=== PATIENT | male | born 1990 | race Caucasian/White ===

== ENCOUNTER 2016-12-08 15:21 | Emergency (ER) | payer BC, MEDICAID, OTHER ==
[~2016-12-08] VITALS: Ht 172.7 cm; Wt 74.8 kg
[2016-12-08] MEDS ORDERED: DERMABOND TOPICAL SKIN ADHESIVE TOP ONE (16:30)
--- NOTE | 2016-12-08 16:38 | REP ---
Left index finger series: Four views: History: Left index finger laceration. Findings: Four views of the left index finger show soft tissue swelling dorsally at the PIP joint. No fracture, subluxation or opaque foreign body is seen. Impression: No acute bony abnormality. Signed by Alexandru Higgins MD 12/08/2016 05:06 P
[2016-12-08 16:46] VITALS: BP 137/90
== END 2016-12-08 16:55 | disposition home or self-care (01) ==
LOC: M ED 16:12
DX: S61.211A Laceration without foreign body of left index finger without damage to nail, initial encounter (principal); X58.XXXA Exposure to other specified factors, initial encounter; Y92.9 Unspecified place or not applicable; Y93.9 Activity, unspecified; Y99.9 Unspecified external cause status

== ENCOUNTER 2016-12-09 08:53 | Emergency (ER) | payer OTHER ==
[2016-12-09] MEDS ORDERED: DERMABOND TOPICAL SKIN ADHESIVE TOP ONE (10:15)
[2016-12-09 10:16] VITALS: BP 138/80
== END 2016-12-09 10:29 | disposition home or self-care (01) ==
LOC: M ED 09:36
DX: Z51.89 Encounter for other specified aftercare (principal)

== ENCOUNTER → 2019-01-09 | Outpatient (REF) | payer OTHER | LOC: M LAB REF 10:14 | PROVIDERS: ATTEND Physician Assistant Medical | DX: J02.9 Acute pharyngitis, unspecified (principal) ==

== ENCOUNTER → 2019-08-21 | Outpatient (REF) | payer OTHER | LOC: M LAB REF 12:31 | PROVIDERS: ATTEND Physician Assistant Medical | DX: J02.9 Acute pharyngitis, unspecified (principal) ==

== ENCOUNTER → 2020-05-28 | Outpatient (CLI) | payer BC, OTHER ==
[~2020-05-28] MED LIST: METHACHOLINE KIT (J7674) INH ONE
--- NOTE | 2020-05-28 14:44 | PFTRPT ---
Visit Date: 05/28/2020 Referring Doctor: Milagro Pepe DO Height: 68.00 Inches Weight: 165.00 Lbs BSA: 1.88 Diagnosis: R05 QUALITY: Study of excellent technical quality. PROCEDURE: Under protocol, methacholine was administered. At a dose of 2.5 mg or 13.875 CDUs, a 20% decline in the FEV1 was noted. PC of 2.31 is significant. Flow rates did return to baseline post-bronchodilator administration. IMPRESSION: Positive methacholine challenge study. MTDD
--- NOTE | 2020-06-03 11:30 | METHCHAL ---
METHACHOLINE CHALLENGE STUDY DATE: 05/28/2020 ORDERED BY: Jaciel Dsouza QUALITY: Study of excellent technical quality. PROCEDURE: Under protocol, methacholine was administered. At a dose of 2.5 mg or 13.875 CDUs, a 20% decline in the FEV1 was noted. PC of 2.31 is significant. Flow rates did return to baseline post-bronchodilator administration. IMPRESSION: Positive methacholine challenge study. MTDD
== END ==
LOC: M CARPUL 05-26 13:01
PROVIDERS: ATTEND Internal Medicine
DX: R05 Cough (principal)

== ENCOUNTER → 2020-07-12 | Outpatient (CLI) | payer BC, OTHER | LOC: M LABSMTC 10:12 | PROVIDERS: ATTEND Family Medicine | DX: Z20.828 Contact with and (suspected) exposure to other viral communicable diseases (principal) ==

== ENCOUNTER → 2020-10-13 | Outpatient (CLI) | payer BC, OTHER ==
[~2020-10-13] MED LIST changes: -METHACHOLINE KIT (J7674) INH ONE; +PROT20TA11 PO; +QVAR80AE8 INH
== END ==
LOC: M LABSMTC 10:04
PROVIDERS: ATTEND Anesthesiology
DX: Z01.812 Encounter for preprocedural laboratory examination (principal); Z20.822 Contact with and (suspected) exposure to COVID-19

== ENCOUNTER 2020-10-16 08:00 | Day surgery (SDC) | payer BC, OTHER ==
[~2020-10-16] VITALS: Ht 172.7 cm; Wt 76.1 kg
[~2020-10-16 08:00] MED LIST changes: +LIDOCAINE 2% 100MG/5ML SDV (FOR ANES.) As Ordered ONE; +NS 1,000 ML IV ONE; +fentaNYL 100 MCG/2 ML INJECTION (J3010) As Ordered ONE; +propofoL 200 MG/20 ML VIAL As Ordered ONE
--- OUTSIDE RECORDS SUMMARY | 2020-10-16 08:05 | CCD ---
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 Name Role Phone Afshin, Milagro DO Unavailable Unavailable Afshin, Milagro DO Unavailable Unavailable Afshin, Milagro DO Unavailable Unavailable Afshin, Milagro DO Unavailable Unavailable Afshin, Milagro DO Unavailable Unavailable Afshin, Milagro DO Unavailable Unavailable Afshin, Milagro DO Unavailable Unavailable Afshin, Milagro DO Unavailable Unavailable Afshin, Milagro DO Unavailable Unavailable Afshin, Milagro DO Unavailable Unavailable Afshin, Milagro DO Unavailable Unavailable Afshin, Milagro DO Unavailable Unavailable Afshin, Milagro DO Unavailable Unavailable Afshin, Milagro DO Unavailable Unavailable Afshin, Milagro DO Unavailable Unavailable Afshin, Milagro DO Unavailable Unavailable Afshin, Milagro DO Unavailable Unavailable Afshin, Milagro DO Unavailable Unavailable Afshin, Milagro DO Unavailable Unavailable Afshin, Milagro DO Unavailable Unavailable Afshin, Milagro DO Unavailable Unavailable Afshin, Milagro DO Unavailable Unavailable Afshin, Milagro DO Unavailable Unavailable Afshin, Milagro DO Unavailable Unavailable Afshin, Milagro DO Unavailable Unavailable Afshin, Milagro DO Unavailable Unavailable Afshin, Milagro DO Unavailable Unavailable Afshin, Milagro DO Unavailable Unavailable Afshin, Milagro DO Unavailable Unavailable Afshin, Milagro DO Unavailable Unavailable Afshin, Milagro DO Unavailable Unavailable Afshin, Milagro DO Unavailable Unavailable Afshin, Milagro DO Unavailable Unavailable Afshin, Milagro DO Unavailable Unavailable Afshin, Milagro DO Unavailable Unavailable Afshin, Milagro DO Unavailable Unavailable Afshin, Milagro DO Unavailable Unavailable Afshin, Milagro DO Unavailable Unavailable Afshin, Milagro DO Unavailable Unavailable Afshin, Milagro DO Unavailable Unavailable Afshin, Milagro DO Unavailable Unavailable Afshin, Milagro DO Unavailable Unavailable Afshin, Milagro DO Unavailable Unavailable Afshin, Milagro DO Unavailable Unavailable Afshin, Milagro DO Unavailable Unavailable Afshin, Milagro DO Unavailable Unavailable Afshin, Milagro DO Unavailable Unavailable Afshin, Milagro DO Unavailable Unavailable Afshin, Milagro DO Unavailable Unavailable Afshin, Milagro DO Unavailable Unavailable Afshin, Milagro DO Unavailable Unavailable Afshin, Milagro DO Unavailable Unavailable Afshin, Milagro DO Unavailable Unavailable Afshin, Milagro DO Unavailable Unavailable Afshin, Milagro DO Unavailable Unavailable Afshin, Milagro DO Unavailable Unavailable Afshin, Milagro DO Unavailable Unavailable Afshin, Milagro DO Unavailable Unavailable Afshin, Milagro DO Unavailable Unavailable Afshin, Milagro DO Unavailable Unavailable Afshin, Milagro DO Unavailable Unavailable Afshin, Milagro DO Unavailable Unavailable Afshin, Milagro DO Unavailable Unavailable Afshin, Milagro DO Unavailable Unavailable Afshin, Milagro DO Unavailable Unavailable Afshin, Milagro DO Unavailable Unavailable Afshin, Milagro DO Unavailable Unavailable Afshin, Milagro DO Unavailable Unavailable Afshin, Milagro DO Unavailable Unavailable Afshin, Milagro DO Unavailable Unavailable Afshin, Milagro DO Unavailable Unavailable Afshin, Milagro DO Unavailable Unavailable LETTIERE, A DION PA Unavailable Unavailable LETTIERE, A DION PA Unavailable Unavailable LETTIERE, A DION PA Unavailable Unavailable LETTIERE, A DION PA Unavailable Unavailable LETTIERE, A DION PA Unavailable Unavailable LETTIERE, A DION PA Unavailable Unavailable LETTIERE, A DION PA Unavailable Unavailable LETTIERE, A DION PA Unavailable Unavailable LETTIERE, A DION PA Unavailable Unavailable LETTIERE, A DION PA Unavailable Unavailable LETTIERE, A DION PA Unavailable Unavailable LETTIERE, A DION PA Unavailable Unavailable LETTIERE, A DION PA Unavailable Unavailable LETTIERE, A DION PA Unavailable Unavailable LETTIERE, A DION PA Unavailable Unavailable LETTIERE, A DION PA Unavailable Unavailable LETTIERE, A DION PA Unavailable Unavailable LETTIERE, A DOIN PA Unavailable Unavailable LETTIERE, A DION PA Unavailable Unavailable LETTIERE, A DION PA Unavailable Unavailable LETTIERE, A DION PA Unavailable Unavailable LETTIERE, A DION PA Unavailable Unavailable LETTIERE, A DION PA Unavailable Unavailable LETTIERE, A DION PA Unavailable Unavailable LETTIERE, A DION PA Unavailable Unavailable LETTIERE, A DION PA Unavailable Unavailable LETTIERE, A DION PA Unavailable Unavailable LETTIERE, A DION PA Unavailable Unavailable LETTIERE, A DION PA Unavailable Unavailable Re-disclosure Warning The records that you are about to access may contain information from federally-assisted alcohol or drug abuse programs. If such information is present, then the following federally mandated warning applies: This information has been disclosed to you from records protected by federal confidentiality rules (42 CFR part 2). The federal rules prohibit you from making any further disclosure of this information unless further disclosure is expressly permitted by the written consent of the person to whom it pertains or as otherwise permitted by 42 CFR part 2. A general authorization for the release of medical or other information is NOT sufficient for this purpose. The Federal rules restrict any use of the information to criminally investigate or prosecute any alcohol or drug abuse patient.The records that you are about to access may contain highly sensitive health information, the redisclosure of which is protected by Article 27-F of the [place] Public [employer] law. If you continue you may have access to information: Regarding HIV / AIDS; Provided by facilities licensed or operated by the [place] Office of Mental Health; or Provided by the [place] Office for People With Developmental Disabilities. If such information is present, then the following [place] mandated warning applies: This information has been disclosed to you from confidential records which are protected by state law. State law prohibits you from making any further disclosure of this information without the specific written consent of the person to whom it pertains, or as otherwise permitted by law. Any unauthorized further disclosure in violation of state law may result in a fine or chcf sentence or both. A general authorization for the release of medical or other information is NOT sufficient authorization for further disc losure. Encounters Encounter Providers Location Date Indications Data Source(s ) Outpatient Attender: DION peterson 07/11/2020 02:10:00 PM EST [facility] ([facility]) Outpatient Attender: Milagro Zimmerman 04/29 01:00:00 PM EDT [facility] ([facility] ) Medications Medication Brand Name Start Date Product Form Dose Route Admi nistrative Instructions Pharmacy Instructions Status Indications Reaction Description Data Source(s) 20 mg 10/01/2020 12:00:00 AM EST tablet,delayed release (DR/EC) 30 TAKE ONE TABLET BY MOUTH EVERY DAY TAKE ONE TABLET BY MOUTH EVERY DAY SOLD: 10/05/2020 [facility] Esomeprazole 20 MG Delayed Release Oral Capsule [Nexium] Nex ium 09/26/2020 12:00:00 AM EST ORAL active M [facility] ([facility], ) 80 mcg/actuation 04/30/2020 12:00:00 AM EDT HFA aerosol padma th activated 10 INHALE ONE PUFF BY MOUTH TWICE A DAY INHALE ONE PUFF BY MOUTH TWICE A DAY SOLD: 07/14/2020 [facility] 90 mcg/actuation 04/30/2020 12:00:00 AM EDT HFA aerosol inha ler 17 INHALE TWO PUFFS BY MOUTH FOUR TIMES A DAY NEEDED FOR SHORTNESS OF BREATH OR COUGH INHALE TWO PUFFS BY MOUTH FOUR TIMES A DAY NEEDED FOR SHORTNESS OF BREATH OR COUGH SOLD: 04/30/2020 [facility] 80 mcg/actuation 04/30/2020 12:00:00 AM EDT HFA aerosol padma th activated 10 INHALE ONE PUFF BY MOUTH TWICE A DAY INHALE ONE PUFF BY MOUTH TWICE A DAY SOLD: 04/30/2020 [facility] Qvar Redihaler Qvar Redihaler 04/29/2020 12:00:00 AM EDT RESPIRATORY active [facility] ([facility]) cetirizine hydrochloride 10 MG Oral Tablet Cetirizine HCL 04/29/2020 12:00:00 AM EDT ORAL active [facility] ([facility]) 200 ACTUAT Albuterol 0.09 MG/ACTUAT Metered Dose Inhaler [Pr oAir] Proair HFA 04/29/2020 12:00:00 AM EDT RESPIRATORY active [facility] ([facility]) Esomeprazole 20 MG Delayed Release Oral Capsule [Nexium] Nex ium 04/29/2020 12:00:00 AM EDT ORAL active M [facility] ([facility]) No Active Medications 03/07/2020 12:00:00 AM EDT active [facility] ([facility], ) Cephalexin 500 MG Oral Tablet Cephalexin 02/28/2020 12:00:00 AM EDT completed [facility] ([facility], ) Cephalexin 500 MG Oral Capsule CEPHALEXIN 02/28/2020 12:00:00 AM EDT capsule 9 TAKE ONE CAPSULE BY MOUTH THREE TIMES A DAY FOR 3 DAYS TAKE ONE CAPSULE BY MOUTH THREE TIMES A DAY FOR 3 DAYS SOLD: 02/28/2020 [facility] No Active Medications 02/28/2020 12:00:00 AM EDT completed [facility] ([facility], ) 25 mg 08/22/2019 12:00:00 AM EST tablet 30 TAKE ONE TABLET BY MOUTH EVERY DAY TAKE ONE TABLET BY MOUTH EVERY DAY SOLD: 10/10/2019 [facility] 25 mg 08/22/2019 12:00:00 AM EST tablet 30 TAKE ONE TABLET BY MOUTH EVERY DAY TAKE ONE TABLET BY MOUTH EVERY DAY SOLD: 11/21/2019 [facility] 25 mg 08/22/2019 12:00:00 AM EST tablet 30 TAKE ONE TABLET BY MOUTH EVERY DAY TAKE ONE TABLET BY MOUTH EVERY DAY SOLD: 08/22/2019 [facility] 250 mg 08/21/2019 12:00:00 AM EST tablet 6 TAKE TWO TABLETS BY MOUTH AT ONCE ON THE FIRST DAY THEN TAKE ONE DAILY THEREAFTER TAKE TWO TABLETS BY MOUTH AT ONCE ON THE FIRST DAY THEN TAKE ONE DAILY THEREAFTER SOLD: 08/21/2019 [facility] Insurance Providers Payer name Policy type / Coverage type Policy ID Covered constitution party ID Covered constitution party's relationship to vang Policy Vang Plan Information [facility] [id number] SP [id number] [facility] [id number] SP [id number] [facility] [id number] SP [id number] [place] [id number] SP [id number] MEDICAID [id number] SP [id number] [employer] PPO 302/307 [id number] SP [id number] Problems, Conditions, and Diagnoses Code Display Name Description Problem Type Effective Dates Data Source(s) [id number] Allergic asthma without status asthmatic us Allergic asthma without status asthmaticus Problem 09/26/2020 12:00:00 AM EST [facility] ([facility], ) Results ID Date Data Source [id number] 10/13/2020 12:00:00 PM EST [facility] Name Value Range Interpretation Code Description Data Radha rce(s) Supporting Document(s) SARS coronavirus 2 RNA [Presence] in Res piratory specimen by CYDNEY with probe detection NEGATIVE [facility] This lab was ordered by [facility] a nd reported by [facility]. ID Date Data Source [id number] 07/12/2020 10:30:00 AM EST [facility] ([facility]) Name Value Range Interpretation Code Description Data Radha rce(s) Supporting Document(s) Laboratory test finding (navigational concept) Laboratory test result [facility] ([facility]) Test: COVID-19 Nasal/Naspharynx Result: NOT DETECTED Reference Units: Not detected Note: Please consider re-collection of a new specimen, if clinically indicated. Note: The COVID-19 assay is under Emergency Use Authorization(EUA) by the U.S. Food and Drug Administration. [facility] is designated as a high complexity laboratory by the Clinical Laboratory Improvement Amendments of 1988(CLIA) and is qualified to perform this test. ASSAY INFORMATION: Real Time RT-PCR Patient samples for this assay have been pooled. All positive samples have been individually repeated for confirmation. The pooling protocol is pending FDA review. ID Date Data Source [id number] 07/12/2020 12:00:00 AM EST [facility] Name Value Range Interpretation Code Description Data Radha rce(s) Supporting Document(s) 2019-nCoV RNA XXX CYDNEY+probe-Imp [facility] This lab was ordered by [facility] and reported by [facility] [employer] [facility] ID Date Data Source [id number] 07/11/2020 12:00:00 AM EST [facility] Name Value Range Interpretation Code Description Data Radha rce(s) Supporting Document(s) SARS-CoV2 Rapid Antigen [facility] This lab was reported by [facility]. ID Date Data Source [id number] 04/29/2020 01:34:00 PM EDT [facility] ([facility]) Name Value Range Interpretation Code Description Data Radha rce(s) Supporting Document(s) Thyrotropin [Units/volume] in Serum or Plasma by Detec tion limit <= 0.05 mIU/L 1.00 uIU/mL 0.36-3.74 [facility] ([facility] ) ID Date Data Source [id number] 04/29/2020 01:34:00 PM EDT [facility] ([facility]) Name Value Range Interpretation Code Description Data Radha rce(s) Supporting Document(s) Triglyceride [Mass/volume] in Serum or Plasma 110 mg/dL 30-150 [facility] ([facility]) Cholesterol in HDL [Mass/volume] in Serum or Plasma 43 mg/dL 35-60 [facility] ([facility]) Cholesterol [Mass/volume] in Serum or Plasma 188 mg/dL 131-200 [facility] ([facility]) Cholesterol in LDL [Mass/volume] in Serum or Plasma by calcu lation 123 CALC 50-159 [facility] ([facility]) ID Date Data Source [id number] 04/29/2020 01:34:00 PM EDT [facility] ([facility]) Name Value Range Interpretation Code Description Data Radha rce(s) Supporting Document(s) Urea nitrogen [Mass/volume] in Serum or Plasma 16 mg/dL 7-18 [facility] ([facility]) Glucose [Mass/volume] in Serum or Plasma 95 mg/dL 74-99 [facility] ([facility]) 100-125 mg/dL PRE-DIABETES/FASTING >126 mg/dL DIABETES/FASTING Creatinine 0.8 mg/dL 0.6-1.3 [facility]) Potassium [Moles/volume] in Serum or Plasma 4.2 meq/L 3.5-5.1 [facility] ([facility]) Chloride [Moles/volume] in Serum or Plasma 106 meq/L 98-107 [facility] ([facility]) Sodium [Moles/volume] in Serum or Plasma 143 meq/L 136-145 [facility] ([facility]) Alkaline phosphatase isoenzyme [Units/volume] in Serum or Pl asma 25 mg/dL 46-116 [facility] ([facility]) Carbon dioxide, total [Moles/volume] in Serum or Plasma 29 meq/L 21 -32 [facility] ([facility]) Calcium [Mass/volume] in Serum or Plasma 9.0 mg/dL 8.5-10.1 [facility] ([facility]) Total Bilirubin 0.4 mg/dL 0.2-1.0 [facility] ([facility]) Albumin [Mass/volume] in Serum or Plasma 4.1 g/dL 3.4-5.0 [facility] ([facility]) Aspartate aminotransferase [Enzymatic activity/volume] in Serum or Plasma 19 U/L 15-37 [facility] ([facility] ) Alanine aminotransferase [Enzymatic activity/volume] in Seru m or Plasma 22 U/L 12-78 [facility] ([facility]) Glomerular filtration rate/1.73 sq M pre dicted among non-blacks [Volume Rate/Area] in Serum or Plasma by Creatinine-based formula (MDRD) Laboratory test [facility] Proteinase 3 Ab [Units/volume] in Serum 7.4 g/dL 6.4-8.2 [facility] A/G Ratio 1.24 CALC 1.00-1.90 [facility]) Glomerular filtration rate/1.73 sq M pre dicted among blacks [Volume Rate/Area] in Serum or Plasma by Creatinine-based formula (MDRD) Laboratory test result [facility] <content>CHRONIC KIDNEY DISEASE STAGING PER NKF</content>
<content></content>
<content>STAGE I & II GFR >= 60 NORMAL TO MILDLY DECREASED</content>
<content>STAGE III GFR 30-59 MODERATELY DECREASED</content>
<content>STAGE IV GFR 15-29 SEVERELY DECREASED</content>
<content>STAGE V GFR <15 VERY LITTLE GFR LEFT</content>
<content>ESRD GFR <15 ON MED SPEC</content>
<content></content> ID Date Data Source [id number] 04/29/2020 01:34:00 PM EDT [facility] ([facility]) Name Value Range Interpretation Code Description Data Radha rce(s) Supporting Document(s) Leukocytes [#/volume] in Blood by Automated count 6.5 x10*3/UL 4.1-10 .9 [facility] ([facility]) Hemoglobin [Mass/volume] in Blood 14.8 g/dL 12.0-18.0 [facility] ([facility]) Erythrocytes [#/volume] in Blood by Automated count 4.91 x10*6/UL 4.2 0-6.30 [facility] ([facility]) MCH 30.1 pg 26.0-32.0 [facility] Hematocrit [Volume Fraction] of Blood by Automated count 43.0 % 3 7.0-51.0 [facility] ([facility]) MCV 87.5 fL 80.0-97.0 [facility] Erythrocyte distribution width [Ratio] by Automated count 12.7 % 11.6-13.7 [facility] ([facility]) Platelets [#/volume] in Blood by Automated count 201 x10*3/UL 140-440 [facility] ([facility]) MPV 8.4 FL 7.8-11.0 [facility] MCHC 34.4 g/dL 31.0-38.0 [facility] Neut % 58.0 % 37.0-92.0 [facility] Lymph % 34.0 % 10.0-58.5 [facility] Mid % 8.0 % 1.7-9.3 [facility] Mid # 0.5 x10*3/UL 0.1-0.6 [facility] ([facility]) Neut # 3.8 x10*3/UL 2.0-7.8 [facility] ([facility]) Lymph # 2.2 x10*3/UL 0.6-4.1 [facility] ([facility]) Procedure Social History Code Duration Value Status Description Data Source(s ) Smoking 07/11/2020 12:00:00 AM EST Patient has never smoked co mpleted Patient has never smoked [facility] ([facility]) Vital Signs ID Date Data Source UNK Name Value Range Interpretation Code Description Data Source(s) Body surface area Derived from formula 1.90 m2 1.90 m2 [facility] ([facility]) Body weight 76.205 kg 76.205 kg [facility] ([facility]) [place] body weight 154 [lb_av] 154 [lb_av] [facility] Body mass index (BMI) [Ratio] 25.5 kg/m2 25.5 k g/m2 [facility] ([facility]) Body weight 168.00 [lb_av] 168.00 [lb_av] [facility] Body height 68 [in_i] 68 [in_i] [facility] ([facility]) 5'8" Diastolic blood pressure 84 mm[Hg] 84 mm[Hg] [facility] ([facility]) Systolic blood pressure 124 mm[Hg] 124 mm[Hg] [facility] Body mass index (BMI) [Ratio] 25.1 kg/m2 25.1 k g/m2 [facility] Body height 68 [in_i] 68 [in_i] [facility] ([facility]) 5'8" Body weight 165.00 [lb_av] 165.00 [lb_av] [facility] T ([facility]) Body temperature 98.3 [degF] 98.3 [degF] [facility] ([facility]) Oxygen saturation in Arterial blood by Pulse oximetry 96 % 96 % [facility] Respiratory rate 14 /min 14 /min [facility] Heart rate 83 /min 83 /min [facility] ([facility]) Diastolic blood pressure 78 mm[Hg] 78 mm[Hg] [facility] ([facility]) Systolic blood pressure 122 mm[Hg] 122 mm[Hg] [facility] ([facility]) Body mass index (BMI) [Ratio] 26.0 kg/m2 26.0 k g/m2 [facility] ([facility]) Oxygen saturation in Arterial blood by Pulse oximetry 96 % 96 % [facility] ([facility]) Air Body weight 171.00 [lb_av] 171.00 [lb_av] [facility] T ([facility]) Body height 68 [in_i] 68 [in_i] [facility] ([facility]) 5'8" Heart rate 65 /min 65 /min [facility] Diastolic blood pressure 80 mm[Hg] 80 mm[Hg] [facility] Systolic blood pressure 122 mm[Hg] 122 mm[Hg] [facility] Body surface area Derived from formula 1.90 m2 1.90 m2 [facility] Body weight 76.658 kg 76.658 kg [facility] ([facility]) [place] body weight 154 [lb_av] 154 [lb_av] [facility] T ([facility]) Body mass index (BMI) [Ratio] 25.7 kg/m2 25.7 k g/m2 [facility] Body weight 169.00 [lb_av] 169.00 [lb_av] [facility] ([facility]) Body height 68 [in_i] 68 [in_i] [facility] 5'8" Body weight 77.112 kg 77.112 kg [facility] ([facility]) Body mass index (BMI) [Ratio] 25.8 kg/m2 25.8 k g/m2 [facility] ([facility]) Body weight 170.00 [lb_av] 170.00 [lb_av] [facility] T ([facility]) Body height 68 [in_i] 68 [in_i] [facility] ([facility], ) 5'8" Diastolic blood pressure 85 mm[Hg] 85 mm[Hg] [facility] ([facility], ) Systolic blood pressure 131 mm[Hg] 131 mm[Hg] Ana Cristina MAN ([facility], )
--- OUTSIDE RECORDS SUMMARY | 2020-10-16 08:05 | CCD | Continuity of Care Document ---
Author Organization Unknown Address Unknown Phone Unavailable Problems Description No Information Available Social History Type Date Description Comments Sex Unknown ETOH Use Occasionally consumes alcohol Tobacco Use Start: Unknown End: Unknown Patient is a former smoker SMOKED X 10 YEARS,QUIT 2008 Allergies, Adverse Reactions, Alerts Description No Known Drug Allergies Medications Active Medications SIG Qnty Indications Ordering Provide r Date Proair HFA 108(90Base) mcg/Act Aer osol 2 puffs four times a day as needed sob or cough 17gm Chery Pepe,DO 04/29/[address] 1 by mouth every day 30caps Milagro Pepe,DO 04/29/2020 Cetirizine HCL 10mg Tablets 1 by mouth every day 30tabs Milagro Pepe,DO 04/29/2020 Qvar Redihaler 80mcg/Act Aerosol one puff twice a day. 10.600gm Milagro Pepe, 04/29/2020 Immunizations Description No Information Available Vital Signs Date Vital Result Comment 04/29/2020 1:03pm BP Systolic 122 mmHg BP Diastolic 80 mmHg Heart Rate 65 /min Height 68 inches 5'8" Weight 171.00 lb O2 % BldC Oximetry 96 % RM Air BMI (Body Mass Index) 26.0 kg/m2 02/10/2010 3:27pm Height 68 inches 5'8" Weight 163.25 lb BMI (Body Mass Index) 24.8 kg/m2 Results Test Acquired Date Facility Test Result H/L Range Note Coronavirus 2018 ([facility]) 07/12/2020 [facility] [address] [place] [address] [phone] Coronavirus 2018 ([facility]) <SEE NOTE> 1 Complete Blood Count 04/29/2020 [facility] Data Entry Manager: [place] [address] [phone] WBC 6.5 x10*3/UL 4.1 - 10.9 RBC 4.91 x10*6/UL 4.20 - 6.30 Hemoglobin 14.8 g/dL 12.0 - 18.0 Hematocrit 43.0 % 37.0 - 51.0 MCV 87.5 fL 80.0 - 97.0 MCH 30.1 pg 26.0 - 32.0 MCHC 34.4 g/dL 31.0 - 38.0 RDW 12.7 % 11.6 - 13.7 PLT 201 x10*3/UL 140 - 440 MPV 8.4 FL 7.8 - 11.0 Lymph % 34.0 % 10.0 - 58.5 Mid % 8.0 % 1.7 - 9.3 Neut % 58.0 % 37.0 - 92.0 Lymph # 2.2 x10*3/UL 0.6 - 4.1 Mid # 0.5 x10*3/UL 0.1 - 0.6 Neut # 3.8 x10*3/UL 2.0 - 7.8 Comprehensive Chem Profile 04/29/2020 [facility] Data Entry Manager: [place] [address] [phone] Glucose 95 mg/dL 74 - 99 2 BUN 16 mg/dL 7 - 18 Creatinine 0.8 mg/dL 0.6 - 1.3 Sodium 143 mEq/L 136 - 145 Potassium 4.2 mEq/L 3.5 - 5.1 Chloride 106 mEq/L 98 - 107 Carbon Dioxide 29 mEq/L 21 - 32 Calcium 9.0 mg/dL 8.5 - 10.1 Alk. Phosphatase 25 mg/dL Low 46 - 116 Total Bilirubin 0.4 mg/dL 0.2 - 1.0 Ast (Sgot) 19 U/L 15 - 37 Alt (SGPT) 22 U/L 12 - 78 Albumin 4.1 g/dL 3.4 - 5.0 Total Protein 7.4 g/dL 6.4 - 8.2 A/G Ratio 1.24 CALC 1.00 - 1.90 GFR >= 60 mL/min >60 GFR >= 60 mL/min >60 3 Lipid Profile 04/29/2020 [facility] Data Entry Manager: Dr [address] [place], [place] [id number] [phone] Cholesterol 188 mg/dL 131 - 200 Triglycerides 110 mg/dL 30 - 150 HDL Cholesterol 43 mg/dL 35 - 60 LDL (Calculated) 123 CALC 50 - 159 Laboratory test finding 04/29/2020 [facility] Data Entry Manager: [place] [address] [phone] Thyroid Stimulating Hormone 1.00 uIU/mL 0.3 6 - 3.74 1 Test: COVID-19 Nasal/Naspharynx Result: NOT DETECTED Reference Units: Not detected Note: Please consider re-collection of a new specimen, if clinically indicated. Note: The COVID-19 assay is under Emergency Use Authorization(EUA) by the U.S. Food and Drug Administration. [facility] is designated as a high complexity laboratory by the Clinical Laboratory Improvement Amendments of 1988(CLIA) and is qualified to perform this test. ASSAY INFORMATION: Real Time RT-PCR Patient samples for this assay have been pooled. All positive samples have been individually repeated for confirmation. The pooling protocol is pending FDA review. 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 Procedures Description No Information Available Medical Devices Description No Information Available Encounters Type Date Location Provider Dx Diagnosis Office Visit 04/29/2020 1:00p [facility] marie,DO M25.522 Pain in left elbow K21.9 Gastro-esophageal reflux dis ease without esophagitis R05 Cough J30.9 Allergic rhinitis, unspecifi ed Z13.220 Encounter for screening for lipoid disorders Assessments Date Code Description Provider 04/29/2020 M25.522 Pain in left elbow MilagroJluis Og O 04/29/2020 K21.9 Gastro-esophageal reflux disease without esophagitis Milagro Pepe,DO 04/29/2020 R05 Cough Milagro Pepe DO 04/29/2020 J30.9 Allergic rhinitis, unspecified L aurmelvin Pepe,DO 04/29/2020 Z13.220 Encounter for screening for lipo id disorders Milagro Pepe DO Plan of Treatment 04/29/2020 - Milagro Pepe DO* M25.522 Pain in left elbow * K21.9 Gastro-esophageal reflux disease without esophagitis * R05 Cough * J30.9 Allergic rhinitis, unspecified * Z13.220 Encounter for screening for lipoid disorders * All * New Medication:* Proair HFA 108(90 Base) mcg/Act - 2 puffs four times a day as needed sob or cough * Nexium 20 mg - 1 by mouth every day * Cetirizine HCL 10 mg - 1 by mouth every day * Qvar Redihaler 80 mcg/Act - one puff twice a day. * Comments:* I want to see him back for a follow up visit in 1 month to see if these medicines are helping him. In the meantime, we'll try to get him in with Dr. Coley for an EGD and get the Methacholine challenge test ordered. I don't know if he'll get in within a month for either of these. Functional Status Description No Information Available Mental Status Description No Information Available Referrals Refer to Reason for Referral Status Appt Date Lars Haley MD [employer]ATE CONSULT FOR SCREENING EGD DX: REFLUX Sent [facility] [address] [facility] [address] [facility] [address] [phone] Ralph Coley MD CONSULT FOR SCREENING EGD DX: PERSISTENT REFLUX Sent [address] [facility] [address] [phone] [facility] CONSULT FOR LT ELBOW PAIN Patien t Declined [address] [place] [address] [phone]
--- OUTSIDE RECORDS SUMMARY | 2020-10-16 08:05 | CCD | Continuity of Care Document ---
Author Author Lars BORJAS Organization Unknown Address [address] [place] [address], [address] [place] [address] Phone [phone] Care Team Providers Care Manager Surgical Name Role Phone Milagro Pepe D.O. AUTM [phone] Problems Active Problems Provider Date Allergic asthma without status asthmaticus LAMIN Pacheco Onset: 09/26/2020 Social History Type Date Description Comments Sex Unknown ETOH Use 1 A Day Recreational Drug Use Denies Drug Use Tobacco Use Start: Unknown Quit 2009 Allergies, Adverse Reactions, Alerts Description No Known Drug Allergies Medications Active Medications SIG Qnty Indications Ordering Provide r Date Nexium 20mg Capsules DR Take 1 by mouth every day. 30caps K21.9 Lars Haley MD 09/26/2020 Qvar Redihaler 40mcg/Act Aerosol 1 puff twice a day Unknown Zyrtec Allergy 10mg Tablets take on by mouth every day Unknown Immunizations Description No Information Available Vital Signs Date Vital Result Comment 09/26/2020 9:05am BP Systolic 124 mmHg BP Diastolic 84 mmHg Height 68 inches 5'8" Weight 168.00 lb BMI (Body Mass Index) 25.5 kg/m2 [place] Body Weight 154 lb Weight 76.205 kg BSA (Body Surface Area) 1.90 m2 03/07/2020 8:56am Height 68 inches 5'8" Weight 169.00 lb BMI (Body Mass Index) 25.7 kg/m2 [place] Body Weight 154 lb Weight 76.658 kg BSA (Body Surface Area) 1.90 m2 Results Description No Information Available Procedures Description No Information Available Medical Devices Description No Information Available Encounters Description No Information Available Assessments Date Code Description Provider 09/26/2020 K21.9 Gastro-esophageal reflux disease without esophagitis LAMIN Frey 09/26/2020 K22.70 Marks's esophagus without dysp lasia LAMIN Frey Plan of Treatment 09/26/2020 - LAMIN Frey* K21.9 Gastro-esophageal reflux disease without esophagitis * K22.70 Marks's esophagus without dysplasia * * New Medication:* Nexium 20 mg * New Orders:* Endoscopy, Ordered: 09/26/20 * Comments:* Will arrange for upper endoscopy. Reviewed risks and benefits of the procedure, as well as other options, with the patient. Prep for this procedure was discussed with patient. Patient verbalized understanding of all of the above and is in agreement to proceed. Patient will seek medical attention for any acute changes. Will monitor. * Follow up:* As scheduled for EGD, sooner if needed. Also needs a 6 month recall for re-check of GERD/Marks's Esophagus. Functional Status Description No Information Available Mental Status Description No Information Available Referrals Refer to Reason for Referral Status Appt Date Blade Fink M.D. consult for screening EGD (last i n 2009), reflux Scheduled 09/26/[address] [place] [address], [address] [place] [address] [phone]
[2020-10-16] MEDS ORDERED: propofoL 200 MG/20 ML VIAL As Ordered ONE (09:55)
--- NOTE | 2020-10-16 10:18 | ROOR ---
Patient Name: Lars Arguello Procedure Date: 10/16/2020 9:40 AM Date of : 1990 Age: 30 Room: [facility] Gender: Male Note Status: Finalized Procedure: Upper GI endoscopy Indications: Screening for Marks's esophagus, Heartburn Providers: Blade Fink MD Referring MD: Milagro Pepe DO Requesting Provider: Medicines: Monitored Anesthesia Care Complications: No immediate complications. Procedure: Pre-Anesthesia Assessment: - Prior to the procedure, a History and Physical was performed, and patient medications and allergies were reviewed. The patient is competent. The risks and benefits of the procedure and the sedation options and risks were discussed with the patient. All questions were answered and informed consent was obtained. Patient identification and proposed procedure were verified by the physician, the nurse and the anesthesiologist in the procedure room. Mental Status Examination: alert and oriented. Airway Examination: normal oropharyngeal airway and neck mobility. Respiratory Examination: clear to auscultation. CV Examination: normal. Prophylactic Antibiotics: The patient does not require prophylactic antibiotics. Prior Anticoagulants: The patient has taken no previous anticoagulant or antiplatelet agents. ASA Grade Assessment: II - A patient with mild systemic disease. After reviewing the risks and benefits, the patient was deemed in satisfactory condition to undergo the procedure. The anesthesia plan was to use monitored anesthesia care (MAC). Immediately prior to administration of medications, the patient was re-assessed for adequacy to receive sedatives. The heart rate, respiratory rate, oxygen saturations, blood pressure, adequacy of pulmonary ventilation, and response to care were monitored throughout the procedure. The physical status of the patient was re-assessed after the procedure. The Endoscope was introduced through the mouth, and advanced to the second part of duodenum. The upper GI endoscopy was accomplished without difficulty. The patient tolerated the procedure well. Findings: The Z-line was regular and was found 40 cm from the incisors. Non-severe esophagitis with no bleeding was found in the distal esophagus. Biopsies were taken with a cold forceps for histology. Verification of patient identification for the specimen was done by the physician and nurse using the patient's name, date and medical record number. Estimated blood loss was minimal. Patchy moderate inflammation characterized by erosions, erythema, friability and granularity was found in the gastric body and in the gastric antrum. Biopsies were taken with a cold forceps for Helicobacter pylori testing. The duodenal bulb and second portion of the duodenum were normal. Impression: - Z-line regular, 40 cm from the incisors. - Non-severe reflux esophagitis. Biopsied. - Gastritis. Biopsied. - Normal duodenal bulb and second portion of the duodenum. Recommendation: - Patient has a contact number available for emergencies. The signs and symptoms of potential delayed complications were discussed with the patient. Return to normal activities tomorrow. Written discharge instructions were provided to the patient. - High fiber diet. - Continue present medications. - Await pathology results. - Follow an antireflux regimen. - Telephone GI clinic for pathology results in 2 weeks. - Return to primary care physician. Procedure Code(s): --- Professional --- 47541, Esophagogastroduodenoscopy, flexible, transoral; with biopsy, single or multiple Diagnosis Code(s): --- Professional --- K21.0, Gastro-esophageal reflux disease with esophagitis K29.70, Gastritis, unspecified, without bleeding Z13.810, Encounter for screening for upper gastrointestinal disorder R12, Heartburn CPT copyright 2019 [employer]. All rights reserved. The codes documented in this report are preliminary and upon urogynecology physician review may be revised to meet current compliance requirements. Blade Fink MD Blade Fink MD 10/16/2020 10:18:06 AM Electronically signed by Blade Fink MD Number of Addenda: 0 Note Initiated On: 10/16/2020 9:40 AM Estimated Blood Loss: Estimated blood loss was minimal.
[2020-10-16 10:20] VITALS: BP 118/57
== END 2020-10-16 10:33 | disposition home or self-care (01) ==
LOC: M OPP 08:00
PROVIDERS: ATTEND Internal Medicine Gastroenterology
DX: K21.00 Gastro-esophageal reflux disease with esophagitis, without bleeding (principal); K29.70 Gastritis, unspecified, without bleeding; R12 Heartburn; F17.220 Nicotine dependence, chewing tobacco, uncomplicated; Z79.899 Other long term (current) drug therapy
CPT/HCPCS: 43239; 88305; J3010

== ENCOUNTER → 2021-02-10 | Outpatient (REF) | payer BC, OTHER ==
[~2021-02-10] MED LIST changes: -LIDOCAINE 2% 100MG/5ML SDV (FOR ANES.) As Ordered ONE; -NS 1,000 ML IV ONE; -fentaNYL 100 MCG/2 ML INJECTION (J3010) As Ordered ONE; -propofoL 200 MG/20 ML VIAL As Ordered ONE
== END ==
LOC: M LAB REF 13:51
PROVIDERS: ATTEND Physician Assistant
DX: Z20.828 Contact with and (suspected) exposure to other viral communicable diseases (principal)

== ENCOUNTER → 2022-01-13 | Outpatient (REF) | payer BC, OTHER | LOC: M SMT 17:03 | PROVIDERS: ATTEND Urology | DX: Z30.2 Encounter for sterilization (principal) ==

== ENCOUNTER → 2022-07-30 | Outpatient (CLI) | payer BC, OTHER | LOC: M WUC 14:36 | PROVIDERS: ATTEND Physician Assistant Medical | DX: M79.644 Pain in right finger(s) (principal) ==

== ENCOUNTER → 2024-05-04 | Outpatient (REF) | payer BC, OTHER ==
[2024-05-04 10:41] LABS: SEMEN APPEARANCE OPAQUE (OPAQUE); SEMEN VISCOSITY LIQUID (LIQUID); SEMEN pH 8.5 (7.0-8.0); WBC CONCENTRATION <=1 M/ml (<=1 M/ml)
== END ==
LOC: M SMT 10:24
PROVIDERS: ATTEND Urology
DX: Z98.52 Vasectomy status (principal)

== ENCOUNTER → 2025-03-21 | Outpatient (REF) | payer BC, OTHER ==
[2025-03-28 17:32] LABS: TESTOSTERONE FREE (DIRECT) 74.9 pg/mL (35.0-155.0); TESTOSTERONE TOTAL FOR T&D 355.0 ng/dL (250-1100)
== END ==
LOC: M LAB REF 17:28
PROVIDERS: ATTEND Internal Medicine
DX: R68.82 Decreased libido (principal)

== ENCOUNTER → 2025-03-22 | Outpatient (REF) | payer BC | LOC: M LAB REF 16:53 | DX: B34.9 Viral infection, unspecified (principal) ==

== ENCOUNTER 2025-04-24 09:51 | Emergency (ER) | payer BC ==
[~2025-04-24] VITALS: Ht 172.7 cm; Wt 84.1 kg
[2025-04-24 11:53] LABS: BASO # 0.1 10^3/uL (0.0-0.2); BASO % 0.5 % (0.0-1.0); EOS # 0.4 10^3/uL (0.0-0.5); EOS % 4.5 % (0.0-3.0); LYMPH # 2.4 10^3/uL (1.5-5.0); LYMPH % 26.0 % (24.0-44.0); MONO # 0.8 10^3/uL (0.0-0.8); MONO % 8.6 % (2.0-8.0); NEUTROPHILS # 5.5 10^3/uL (1.5-8.5); NEUTROPHILS % 60.3 % (36.0-66.0); PLATELET COUNT, AUTOMATED 205 10^3/uL (150-450)
[2025-04-24 12:00] LABS: ERYTHROCYTE SEDIMENTATION RATE 7 mm/hr (0-15)
[2025-04-24 12:24] LABS: C REACTIVE PROTEIN QUANTITATIV 1.46 MG/DL (<1.0)
[2025-04-24 12:25] LABS: CALCIUM LEVEL 9.3 MG/DL (8.5-10.1); CARBON DIOXIDE LEVEL 29 MMOL/L (20-31); CHLORIDE LEVEL 105 MMOL/L (98-107); CREATININE FOR GFR 0.78 MG/DL (0.70-1.30); GLOMERULAR FILTRATION RATE > 90.0 (>60); POTASSIUM SERUM 4.6 MMOL/L (3.5-5.1); SODIUM LEVEL 144 MMOL/L (136-145)
[2025-04-24] MEDS: ACETAMINOPHEN 500 MG TAB PO ONE (13:20)
[2025-04-24] MEDS: DALBAVANCIN 1,500 MG in D5W 250 ML IV ONE (13:43)
[2025-04-24 13:51] VITALS: O2SAT 98
[2025-04-24 14:51] VITALS: BP 102/63; TEMP 97.7
== END 2025-04-24 15:06 | disposition home or self-care (01) ==
LOC: M ED 09:51
DX: L03.113 Cellulitis of right upper limb (principal); M79.631 Pain in right forearm; Z79.899 Other long term (current) drug therapy
CPT/HCPCS: 80048; 83605; 85025; 85652; 86140; 87040; 93971; 96365; 96375; 99284; J0875; J1100